=== PATIENT | female | born 1950 | race Caucasian/White ===

== ENCOUNTER 2020-07-25 15:11 | Outpatient (CLI) | payer MEDICARE, SELFPAY ==
--- NOTE | 2020-07-25 15:20 | MM_ITS ---
WS: [id number] SCREENING DIGITAL MAMMOGRAM WITH CAD HISTORY: SCREENING COMPARISON: 03/29/2015 Bilateral CC and MLO views submitted. Computer aided detection analyzed. Breast composition: There are scattered areas of fibroglandular density. No suspicious masses, microc alcifications or architectural distortion. MM/[place] [id number] IMPRESSION: BI-RADS: 1-Negative FOLLOW UP: 1 Year Follow-up
== END 2020-07-25 15:12 | disposition home or self-care (01) ==
PROVIDERS: PCP Internal Medicine; Visit Provider Nurse Practitioner Family
DX: Z12.31 Encounter for screening mammogram for malignant neoplasm of breast (principal)
CPT/HCPCS: 77067

== ENCOUNTER 2024-05-28 14:51 | Outpatient (CLI) | payer MEDICARE, SELFPAY ==
--- NOTE | 2024-05-28 14:55 | MR_ITS ---
WS: [id number] MRI CERVICAL SPINE NONCONTRAST HISTORY: CERVICAL SPINE PAIN COMPARISON: None available. Technique: Multiplanar, multisequence noncontrast imaging of the cervical spine. Advanced degenerative disc disease and osteophytosis throughout the cervical spine. Increased T2 signal in the central cervical cord at C5-6. Cervical cord myelomalacia extends over a l ength of 10 mm. Posterior fossa is negative. Craniocervical junction, C1 and C2 relationship, odontoid process and soft tissues are normal. C2-C3: Annular disc bulging with osteophytosis. Mild bilateral foraminal stenosis. C3-C4: Mild annular disc bulging with moderate RIGHT and severe LEFT foraminal stenosis. Bilateral fa cet arthritis. C4-C5: Marked annular disc bulging with a large central disc protrusion and facet arthritis. Severe c entral and LEFT foraminal stenosis. Moderate RIGHT foraminal stenosis. C5-C6: Large central disc protrusion and osteophytosis. Severe central with moderate bilateral forami nal stenosis. C6-C7: Diffuse annular disc bulging with osteophytic ridging. LEFT paracentral disc protrusion. Moder ate to severe central with bilateral foraminal stenosis. C7-T1: Diffuse annular disc bulging Paraspinal soft tissue are normal. MR/MR cervical spin wo con* [id number] IMPRESSION: 1. Advanced degenerative disc disease and spondylosis cervical spine. 2. C5-6: Severe central with moderate bilateral foraminal stenosis. Large cent ral disc protrusion. 3. C3-4: Moderate RIGHT and severe LEFT foraminal stenosis. 4. C4-5: Severe central and LEFT foraminal stenosis with moderate RIGHT forami nal stenosis. 5. C6-7: Moderate to severe central with bilateral foraminal stenosis. LEFT pa racentral disc protrusion. 6. Cord myelomalacia at C5-6 extends over a length of 10 mm.
== END 2024-05-28 14:52 | disposition home or self-care (01) ==
LOC: RAD 14:54
PROVIDERS: PCP Internal Medicine; Visit Provider Internal Medicine
DX: M99.61 Osseous and subluxation stenosis of intervertebral foramina of cervical region (principal); M50.30 Other cervical disc degeneration, unspecified cervical region; M47.892 Other spondylosis, cervical region; M50.321 Other cervical disc degeneration at C4-C5 level; M50.20 Other cervical disc displacement, unspecified cervical region; M50.323 Other cervical disc degeneration at C6-C7 level; M50.33 Other cervical disc degeneration, cervicothoracic region; M50.022 Cervical disc disorder at C5-C6 level with myelopathy; M50.322 Other cervical disc degeneration at C5-C6 level
CPT/HCPCS: 72141

== ENCOUNTER → 2024-07-15 13:21 | Outpatient (BNVA) | payer MEDICARE, SELFPAY | PROVIDERS: PCP Internal Medicine; Visit Provider Orthopaedic Surgery | DX: M54.2 Cervicalgia (principal); Z01.818 Encounter for other preprocedural examination; M47.12 Other spondylosis with myelopathy, cervical region | CPT/HCPCS: 36415; 72050; 80053; 81001; 85025; 99204 ==

== ENCOUNTER → 2024-08-13 09:18 | Outpatient (BNVA) | payer MEDICARE, SELFPAY | PROVIDERS: PCP Internal Medicine; Visit Provider Family Medicine | DX: Z01.818 Encounter for other preprocedural examination (principal) | CPT/HCPCS: 80053; 81003; 85025; 93005 ==

== ENCOUNTER 2024-08-25 17:12 | Inpatient (IN) | payer MEDICARE, SELFPAY ==
[2024-08-25] VITALS (12 sets, daily range): BP systolic 124–157; BP diastolic 56–69; PULSE 53–79; RESP 14–17; TEMP 36.3–36.6; O2SAT 94–98; BMI 28.3
[2024-08-25] MEDS: sodium chloride 0.9% 1,000 ML 30 ML IV (11:45)
--- NOTE | 2024-08-25 12:30 | ANES.PREANE2 ---
Pre-Anesthetic Assessment Height/Weight: Height 5 ft 3 in Weight 160 lb Temp Pulse Resp BP Pulse Ox O2 Del Method 97.5 F L 79 16 144/63 98 Room Air 08/25/24 11:30 08/25/24 11:30 08/25/24 11:30 08/25/24 11:30 08/25/24 11:30 08/25/24 11:30 Preop Diagnosis: Cervical spondylosis with myelopathy Operation Date: 08/25/24 13:15 Proposed Procedures p Anterior Cervical Discectomy & Fusion ACDF w/ Anterior Interbody Fusion w/ Cage w/ Instrumentation w/ Allograft w/ Navigation(Not Applicable) - Suman Haines, DO Was Beta Adilia taken within 24 hours: N/A Was Clonidine taken within 24 hours: N/A Last intake: Intake Last Liquid Date 08/24/24 Last Liquid Time 21:00 Last Solid Date 08/24/24 Last Solid Time 18:00 Social No alcohol and No tobacco Exam alert, oriented x 3, clear to auscultation bilaterally and regular rate & rhythm Airway Submandibular: within normal limits Cervical ROM: within normal limits Mallampati: Class II Dentition: full Anesthetic Plan ASA status: 2 Anesthesia: General Other: No prior issues with anesthesia NPO since yesterday History of hypertension on amlodipine. Preop BP 144/63 Labs 08/13/2024 reviewed acceptable for procedure EKG sinus rhythm Plan for GETA Medications/Allergies Home Medications Medication Instructions Recorded Confirmed Last Taken Type amlodipine 5 mg tablet 5 mg PO DAILY 07/15/24 08/25/24 1 Week Ago History ~08/18/24 cholecalciferol (vitamin D3) 50 50 mcg PO DAILY 08/13/24 08/25/24 1 Week Ago History mcg (2,000 unit) capsule ~08/18/24 ibuprofen 800 mg tablet 800 mg PO Q6H PRN Pain 08/13/24 08/25/24 1 Week Ago History ~08/18/24 Bone Growth Stimulator #1 ea 08/19/24 Unknown Rx Allergies Allergy/AdvReac Type Severity Reaction Status Date / Time adhesive tape Allergy ADR-Itching Verified 08/25/24 11:32 Current Medications Generic Name Dose Route Start Last Admin Trade Name Freq PRN Reason Stop Dose Admin Sodium Chloride 1,000 mls @ 30 mls/hr 08/25/24 11:30 08/25/24 11:45 Sodium Chloride 0.9% IV 08/26/24 11:29 30 mls/hr .Q24H ALLIE Administration PFSH Anesthesia Social History Smoking and tobacco/nicotine status: never used tobacco/nicotine Data Anesthesia Cardiac Studies: No Data to Display
--- NOTE | 2024-08-25 12:46 | W.PM.OPSUD ---
Surgery/Procedure H&P Update DATE OF PROCEDURE: August 25, 2024 DATE H&P PERFORMED: 08/13/24 H&P UPDATE INFORMATION: I have reviewed H&P completed within last 30 days, I have examined patient prior to procedure and No changes to prior documentation PREOP DIAGNOSIS: Cervical spondylosis with myelopathy PLANNED PROCEDURE: Operation Date: 08/25/24 13:15 Proposed Procedures p Anterior Cervical Discectomy & Fusion ACDF w/ Anterior Interbody Fusion w/ Cage w/ Instrumentation w/ Allograft w/ Navigation(Not Applicable) - Suman Haines DO
[2024-08-25] MEDS: ceFAZolin 2,000 mg SDV 2000 MG IVP ×2 (14:02→22:30)
[2024-08-25] MEDS: lidocaine-epi 1% PF 1:200,000 30 mL SDV 10 ML INJECTION (15:47)
--- NOTE | 2024-08-25 16:27 | XR_ITS ---
WS: [id number] Cervical spine, C-arm fluoroscopy views, 08/25/2024 Clinical Data: OR PICS ACDF Comparison: Cervical spine, 07/15/2024 Findings: Dr. Haines performed an anterior cervical disc fusion. XR/XR cervical spine 3V* [id number] Impression: Anterior cervical disc fusion.
--- NOTE | 2024-08-25 16:48 | P.OP_ITS ---
Operative Report Date of procedure: August 25, 2024 Pre-op diagnosis: Cervical spondylosis with myelopathy Post-op diagnosis: same Procedure done: 1. Anterior diskectomy C4/5 2. Anterior diskectomy C5/6 3. Anterior discectomy C6/7 4. Insertion of cage C4/5 5. Insertion of cage C5/6 6. Insertion of Cage C6/7 7. Instrumentation with anterior plate from C4-C7 8. Use of allograft Surgeon: Suman Haines DO Estimated blood loss (mL): 100 Procedure: 1. Anterior diskectomy C4/5 2. Anterior diskectomy C5/6 3. Anterior discectomy C6/7 4. Insertion of cage C4/5 5. Insertion of cage C5/6 6. Insertion of Cage C6/7 7. Instrumentation with anterior plate from C4-C7 8. Use of allograft The patient was taken to the operating room, where he underwent general endotracheal anesthesia without complications. He was then positioned supine on the operating table, and all areas of impingement were well padded. The arms were carefully padded and tucked at his sides. A roll was placed between the shoulder blades.. An x-ray was done to determine the appropriate level for the skin incision. The entire neck was then sterilely prepped and draped in the usual fashion. Neuromonitoring was attached prior to prepping. A transverse skin incision was made and carried down to the platysma muscle. This was then split in line with its fibers. Blunt dissection was carried down medial to the carotid sheath and lateral to the trachea and esophagus until the anterior cervical spine was visualized. A needle was placed into a disc and an x-ray was done to determine its location. The longus colli muscles were then elevated bilaterally with the electrocautery unit. Self-retaining retractors were placed deep to the longus colli muscle. Attention was brought to the C4/5 level that was confirmed on x-ray. A caspar pin was placed into the C4 vertebrae and the C5 vertebrae. The disk space was then distracted. The microscope was then brought in. A radical anterior discectomies were performed at C4/5. This included complete removal of the anterior annulus, nucleus, and posterior annulus. The posterior longitudinal ligament was removed as were the posterior osteophytes. Foraminotomies were then accomplished bilaterally. This was done using a high speed vera, kerrison rongeurs and curretes Once all of this was accomplished, the curved currette was used to check for any residual compression. The central canal was wide open as were the foramen. A high-speed bur was used to remove the cartilaginous endplates above and below the interspace. Bleeding cancellous bone was exposed. The disc space were measured and appropriate size cage were placed sterilely onto the field. Allogr aft graft was packed into the cages. The cage was then placed and there was good juxtaposition against the bleeding decorticated surfaces and good distraction of each interspace. Attention was brought to the next interspace. The [place] pins were removed. Bone wax was used to prevent any bleeding from occurring at the pin sites. Attention was brought to the C5/6 level that was confirmed on x-ray. A caspar pin was placed into the C5 vertebrae and the C6 vertebrae. The disk space was then distracted. The microscope was then brought in. A radical anterior discectomies were performed at C5/6. This included complete removal of the anterior annulus, nucleus, and posterior annulus. The posterior longitudinal ligament was removed as were the posterior osteophytes. Foraminotomies were then accomplished bilaterally. This was done using a high speed vera, kerrison rongeurs and curretes Once all of this was accomplished, the curved currette was used to check for any residual compression. The central canal was wide open as were the foramen. A high-speed bur was used to remove the cartilaginous endplates above and below the interspace. Bleeding cancellous bone was exposed. The disc space were measured and appropriate size cage were placed sterilely onto the field. Allograft graft was packed into the cages. The cage was then placed and there was good juxtaposition against the bleeding decorticated surfaces and good distraction of each interspace. Attention was brought to the next interspace. The [place] pins were removed. Bone wax was used to prevent any bleeding from occurring at the pin sites. Attention was brought to the C6/7 level that was confirmed on x-ray. A caspar pin was placed into the C6 vertebrae and the C7 vertebrae. The disk space was then distracted. The microscope was then brought in. A radical anterior discectomies were performed at C6/7. This included complete removal of the anterior annulus, nucleus, and posterior annulus. The posterior longitudinal ligament was removed as were the posterior osteophytes. Foraminotomies were then accomplished bilaterally. This was done using a high speed vera, kerrison rongeurs and curretes Once all of this was accomplished, the curved currette was used to check for any residual compression. The central canal was wide open as were the foramen. A high-speed bur was used to remove the cartilaginous endplates above and below the interspace. Bleeding cancellous bone was exposed. The disc space were measured and appropriate size cage were placed sterilely onto the field. Allograft graft was packed into the cages. The cage was then placed and there was good juxtaposition against the bleeding decorticated surfaces and good distraction of each interspace. The [place] pins were removed. Bone wax was used to prevent any bleeding from occurring at the pin sites. The appropriate size anterior cervical locking plate was chosen and bent into gentle lordosis. Two screws were then placed into each of the vertebral bodies at C4, C5, C6 and C7. There was excellent purchase. A final x-ray was done confirming good position of the hardware and Cages. The locking screws were then applied, also with excellent purchase. Following a final copious irrigation, there was good hemostasis and no dural leaks. The carotid pulse was strong. The wounds were then closed in layers using 2-0 Vicryl suture for the platysma muscle, 2-0 Vicryl suture for the subcutaneous tissue, and 4-0 monocryl suture in a subcuticular skin closure. Glue was placed followed by application of a sterile dressing. The drain was hooked to bulb suction. A soft collar was applied. The patient was then carefully returned to the supine position on his hospital bed where he was reversed and extubated and taken to the recovery room having to lerated the procedure well.
--- NOTE | 2024-08-25 17:21 | ANE.PACU2 ---
Inpatient post-anesthesia follow up: Airway intact: Yes Vital signs: Temperature 98.8 F Pulse Rate 81 Respiratory Rate 17 Blood Pressure 153/73 Pulse Oximetry 94 Oxygen Delivery Me thod Room Air Oxygen Flow Rate Fraction of Inspir ed Oxygen Hydration adequate: Yes Nausea and vomiting: No Pain level: 1 Mental status: Baseline
[2024-08-25] MEDS: docusate sodium 100 mg Capsule PO (17:51)
[2024-08-25] MEDS: lactated ringers 1,000 ML 90 ML IV (17:51)
[2024-08-25] MEDS: HYDROcodone-acetaminophen 5-325 mg Tablet PO (22:29)
[2024-08-25] MEDS: phenol oral Spray 177 mL 3 SPRAY MUCOUS MEM (23:23)
[2024-08-26] VITALS: BP 169/81; PULSE 72; RESP 15; TEMP 36.7; O2SAT 94
[2024-08-26 04:00] VITALS: BP 147/67; PULSE 65; RESP 16; TEMP 36.4; O2SAT 96
[2024-08-26] MEDS: ketorolac 30 mg/mL INJ IVP (05:23)
[2024-08-26] MEDS: ceFAZolin 2,000 mg SDV 2000 MG IVP (05:23)
[2024-08-26] MEDS: lactated ringers 1,000 ML 90 ML IV (05:23)
[2024-08-26 07:25] VITALS: BP 153/73; PULSE 81; RESP 17; TEMP 37.1; O2SAT 94
[2024-08-26] MEDS: cholecalciferol (vitamin D3) 1,000 unit Tablet 2000 UNIT PO (07:58)
[2024-08-26] MEDS: amlodipine 5 mg Tablet PO (07:58)
[2024-08-26] MEDS: docusate sodium 100 mg Capsule PO (07:58)
--- NOTE | 2024-08-26 08:12 | PM.DCS ---
Discharge Providers Date of Admission: 08/25/24 17:12 Date of Discharge: August 26, 2024 Attending Provider at Admission: Suman Haines DO Attending Provider at Discharge: Suman Haines DO Primary Care Provider: Gerardo Altamirano MD Reason for Visit Reason for Visit: M48.02 Physical Exam Narrative: Patient doing well okay swallowing. Hands feel better. Urinary Catheter Management: Andrew: Cath Placed During This Visit: yes Reason for Continuing Indwelling Catheter: Perioperative Use in Selected Surgeries Urinary Catheter Date of Insertion: 08/25/24 Urinary Catheter Time of Insertion: 14:15 Discharge Data Studies Completed and Pending Pending at discharge Category Date Time Status C-arm Fluoroscopy [id number] Routine Exams 08/25/24 11:19 Taken XR cervical spine 3V* [id number] Routine Exams 08/25/24 16:27 Taken Vitals Last Vital Signs Temp 98.8 F 08/26/24 07:25 Pulse 81 08/26/24 07:25 Resp 17 08/26/24 07:25 BP 153/73 08/26/24 07:25 Pulse Ox 94 08/26/24 07:25 O2 Del Method Room Air 08/26/24 07:25 Discharge Plan Discharge Patient Disposition: Home Condition: Stable Prescriptions: New hydrocodone-acetaminophen 5-325 mg tablet 1 - 2 tab PO .Q4-6H Qty: 40 0RF Continued amlodipine 5 mg tablet 5 mg PO DAILY cholecalciferol (vitamin D3) 50 mcg (2,000 unit) capsule 50 mcg PO DAILY Held ibuprofen 800 mg tablet 800 mg PO Q6H PRN (Reason: Pain) Hold Instructions: Resume on 08/28/24. No Action (DME) Bone Growth Stimulator See Rx Instructions .Route .MEDSUPPLY Qty: 1 0RF Rx Instructions: As directed Discharge Orders: Discharge Order (Routine); Ordered 08/26/24 Ordered By: Suman Haines Discharge Diet: Advance as tolerated Discharge Activity: Limit activity as instructed Patient Instructions: Acute Wound Care (DC), Opioid Safety, Post Anesthesia Care Activity Restrictions/Additional Instructions: Thank you for choosing [facility] for your care! The following is a list of instructions, from your provider, to follow upon your discharge to ensure you have the optimal recovery from your recent injury or surgery. Anterior Cervical Discectomy and Fusion: What to Expect at Home Your Recovery Follow-up care is a shah part of your treatment and safety. Be sure to make and go to all appointments, and call your doctor if you are having problems. If you do not already have a follow-up appointment made, call office in the next 1-3 days to make follow up appointment for 2 weeks at [phone]. It is also a good idea to know your test results and keep a list of the medicines you take. You can expect your neck to feel stiff or sore after surgery. This should improve in the weeks after surgery. But it may take 4 to 6 months for you to get better completely. You may have trouble sitting or standing in one position for very long and may need pain medicine in the weeks after your surgery. It may take 4 to 6 weeks to get back to your usual activities, but it may depend on what kind of surgery you had. Your throat will feel sore and it may be difficult to swallow for the first 3 days after your surgery. As long as you can get liquids down without difficulty, this should slowly improve, otherwise call our office or seek medical attention if it becomes increasingly difficult to get anything down including liquids. Avoid hot liquids for first 3-5 days. Soothing foods/liquids such as jello, pudding, and luke warm soups are recommended until swallowing improves. Staying elevated will also help, it's advised you keep propped up at while sleeping to help reduce the swelling. You may use an ice pack directly on your incision or around it on the front of your neck, using a cloth to protect your skin; and a heating pad to the back of your neck as needed. Do not use over the counter anti-inflammatory medications (Ibuprofen, Motrin, Aleve, Advil, etc) Taking these meds after having a fusion can delay fusion rates, we recommend you avoid them for the first 3 months after your surgery[address] Dr. Haines may advise you to work with a physical therapist to strengthen the muscles around your neck and back - this will be discussed at your follow - up appointments. The pain or numbness you were having in your arms before surgery should get better or go away completely. This care sheet gives you a general idea about how long it will take for you to recover. But each person recovers at a different pace. Follow the steps below to get better as quickly as possible. How can you care for yourself at home? Activity ? Rest when you feel tired. Getting enough sleep will help you recover. ? Try to walk each day. Start by walking a little more than you did the day before. Bit by bit, increase the amount you walk. Walking boosts blood flow and helps prevent pneumonia and constipation. Walking may also decrease your muscle soreness after surgery. ? No lifting anything that is more that 5 pounds. This may include heavy grocery bags and milk containers, a heavy briefcase or backpack, cat litter or dog food bags, a child, or a vacuum aircraft cleaner. ? Avoid strenuous activities, such as bicycle riding, jogging, weightlifting, or aerobic exercise, until your doctor says it is okay. ? Do not drive until your follow-up visit after your surgery, or until your doctor says it isokay. ? Avoid taking long car trips for 2 to 4 weeks after surgery. Your neck may become tired and painful from sitting too long in one position. ? You will probably need to take 4 to 6 weeks off from work. It depends on the type of work you do and how you feel. ? You may have sex as soon as you feel able, but avoid positions that put stress on your neck or cause pain. Diet ? You can eat your normal diet. If your stomach is upset, try bland, low-fat foods like plain rice, broiled chicken, toast, and yogurt ? Drink plenty of fluids. If you have kidney, heart, or liver disease and have to limit fluids, talk with your doctor before you increase the amount of fluids you drink. ? You may notice that your bowel movements are not regular right after your surgery. This is common. Try to avoid constipation and straining with bowel movements. You may want to take a fiber supplement every day. If you have not had a bowel movement after a couple of days, ask your doctor about taking a mild laxative. Medicines ? Take pain medicines exactly as directed. 1. If Dr. Haines gave you a prescription medicine for pain, take lt as prescribed. 2. Do not take two or more pain medicines at the same time unless the doctor told you to. Many pain medicines have acetaminophen, which is Tylenol. Too much acetaminophen {Tylenol) can be harmful. 3. If you think your pain pill is making you sick to your stomach: 4. Take your pills after meals (unless your doctor has told you not to). 5. Ask your Dr. for a different pain pill. Incisioncare ? Remove your dressing 48hours after your surgery. Ok to shower and get the incision wet. Do not overtly wash your incision. When done, pad dry, leave open to air thereafter. Avoid creams and ointments directly on your incision. ? Your sutures in the incision will dissolve and fall out on their own. ? Keep the area clean and dry. You may cover it with a gauze bandage if it weeps or rubs against clothing; if you choose to do this, change the dressing everyday. Other instructions ? Use a heating pad, hot water bottle, or gentle massage on your back to reduce stiffness. Avoid putting heat on your incision When should you call for help? ? Call 911 anytime you think you may need emergency care. For example, call if: ? You pass out (lose consciousness). ? You have sudden chest pain and shortness of breath, or you cough upblood. ? You cannot swallow. ? You have severe pain in your neck or back. ? Call your Dr. or seek immediate medical care if: ? You have pain that does not get better after you take pain pills. ? You have loose stitches, or your incision comes open. ? You have blood or fluid draining from the incision. ? You have signs of infection, such as: 1. Increased pain, swelling, warmth, or redness. 2. Red streaks leading from the site. 3. Pus draining from the site. 4. Swollen lymph nodes in your neck or armpits. 5. A fever. ? You have severe pain in your arms. ? You have new or increased weakness or numbness in your arms. ? Watch closely for any changes in your health, and be sure to contact your doctor if: ? You do not have a bowel movement after taking a laxative. Discharge Attestations Time Spent in Discharge Care*: less than 30 min Quality Metrics Clinical Quality Measures [ No reported AMI, CVA or VTE this stay] Coding Level of Care Code Acute Code for [place] [place]
[2024-08-26] MEDS: HYDROcodone-acetaminophen 5-325 mg Tablet PO (09:15)
--- NOTE | 2024-08-26 10:44 | PC.NURSE ---
This nurse removed sutures and hemovac drain and applied pressure. Pt tolerated well.
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
== END 2024-08-26 10:55 | disposition home or self-care (01) | DRG 473 ==
LOC: MEDSURG 23:29
PROVIDERS: Admitting Provider Orthopaedic Surgery; PCP Family Medicine; Visit Provider Orthopaedic Surgery
PROC: 0RB30ZZ Excision of Cervical Vertebral Disc, Open Approach (ICD-10-PCS; CPT 22551; principal; 2024-08-25 12:55)
DX: M47.12 Other spondylosis with myelopathy, cervical region (principal)
CPT/HCPCS: 51702; 72040; 76000; 97110; 97116; 97161; C1713; C1763; C9359; J0330; J0690; J1100; J1885; J2405; J2704; J2710; J3010; J3490; J7030; J7120

== ENCOUNTER 2024-08-27 10:17 | Emergency (ER) | payer MEDICARE, SELFPAY ==
[2024-08-27 10:32] VITALS: BP 134/70; PULSE 91; RESP 17; TEMP 36.7; O2SAT 96; BMI 29.2
--- NOTE | 2024-08-27 10:41 | XR_ITS ---
WS: [id number] Right shoulder, 3 views, 08/27/2024 Clinical Data: trauma Comparison: None. Findings: No fractures or dislocations are seen. The AC joint shows moderate osteoarthritis. The glenohumeral j oint shows narrowing and irregularity. There is a small calcification overlying the greater tuberosit y which may represent calcific bursitis and/or tendinitis. The adjacent right clavicle, right scapula and ribs are normal. The soft tissues are unremarkable. There is an anterior cervical disc fusion. XR/XR shoulder RT min 2V* [id number] Impression: 1. 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 2. Calcific bursitis and/or tendinitis.
--- NOTE | 2024-08-27 10:41 | CT_ITS ---
WS: [id number] CT CERVICAL SPINE HISTORY: trauma, recent neck surgery, fell out of bed. TECHNIQUE: Contiguous 2.0 mm axial imaging performed through the entire cervical spine. Sagittal and coronal reformats also performed. All CT scans at [facility] use at least one of these dose o ptimization techniques: automated exposure control; mA and/or kV adjustment per patient size (include s targeted exams where dose is matched to clinical indication); or iterative reconstruction. DLP: 161.87 mGy.cm COMPARISON: Cervical spine 07/15/2024 Recent anterior cervical fusion from C4-C7. Interbody spacers at C4-5, C5-6 and C6-7. No hardware fra cture identified. C2 anterolisthesis by 2 mm. Normal facet joint alignment. C2-C3: Osteophytic ridging and facet arthritis. Facet joint arthritis and foraminal stenosis. C3-C4: Bilateral facet joint arthritis with moderate RIGHT and severe LEFT foraminal stenosis. C4-C5: Marked osteophytic ridging and facet arthritis. Severe central and foraminal stenosis. C5-C6: Marked osteophytic ridging. Severe central and foraminal stenosis. C6-C7: Severe central and foraminal stenosis. C7-T1: Normal. Postoperative changes are noted in the soft tissues along the RIGHT neck. There is edema but no focal soft tissue mass. Normal postoperative soft tissue for recent surgery. Large area of decreased attenuation noted in the RIGHT occipital lobe suspicious for a subacute infar ct. No prior studies available indicating a prior infarct. CT/CT cervical spin wo con* [id number] IMPRESSION: 1. Stable postoperative anterior cervical fusion from C4-C7. No hardware fract ure or displacement. 2. Appropriate recent postsurgical findings along the RIGHT neck. No large hem atoma or mass. 3. Area of decreased attenuation involving the RIGHT occipital and temporal lo be is incompletely visualized. Suspicious for subacute infarct. Recommend follo w-up noncontrast CT head. 4. Multilevel areas central and foraminal stenosis throughout the cervical spi ne. Notified Alison Proctor at 08/27/2024 11:34 AM.
--- NOTE | 2024-08-27 11:04 | ED_ITS ---
HPI - Fall 2 General: Chief Complaint: Fall Stated Complaint: fall Time Seen by Provider: 08/27/24 10:41 History of Present Illness: 74-year-old female presents to the emerg ency room after a fall at home. Patient is 2 days postop anterior approach cervical discectomy. She leaned forward to reach for something while she was in bed and fell out of the bed she did not strike her head but she did strike her right shoulder she complaining of some discomfort in her right shoulder she still has full use of her right arm. She denies any other injury there was no loss of consciousness she has continued neck pain not significantly changed from her postop condition prior to the fall. She has not had any fever sweats chills she denies any shortness of breath or chest pain. Associated symptoms-after fall: Denies abdominal pain, chest pain or neck pain Related Data Home Medications Medication Instructions Recorded Confirmed amlodipine 5 mg tablet 5 mg PO DAILY 07/15/24 08/27/24 cholecalciferol (vitamin D3) 50 50 mcg PO DAILY 08/13/24 08/27/24 mcg (2,000 unit) capsule ibuprofen 800 mg tablet 800 mg PO Q6H PRN Pain 08/13/24 08/27/24 Previous Rx's Medication Instructions Recorded Bone Growth Stimulator #1 ea 08/19/24 hydrocodone 5 mg-acetaminophen 325 1 - 2 tab PO .Q4-6H #40 tabs 08/26/24 mg tablet Allergies Allergy/AdvReac Type Severity Reaction Status Date / Time adhesive tape Allergy ADR-Itching Verified 08/25/24 11:32 Review of Systems 2 Const: Denies: fever(s) or chills Card: Denies: chest pain Resp: Denies: dyspnea GI: Denies: abdominal pain : Denies: dysuria, urinary frequency or urinary urgency Musc: Denies: neck pain or back pain Skin/Breast: Denies: rash PFSH ED 2 PFSH: Social History Smoking and tobacco/nicotine status: never used tobacco/nicotine Physical Exam 2 Const: GENERAL APPEARANCE: cooperative ORIENTATION/CONSCIOUSNESS: Yes awake, Yes oriented to person, Yes oriented to place and Yes oriented to time HENMT: COMMON NORMALS: normocephalic, atraumatic and hearing grossly normal bilaterally HEAD & SCALP: normocephalic and atraumatic Resp: COMMON NORMALS: normal respiratory effort, No retractions, No use of accessory muscles and clear to auscultation bilaterally AUSCULTATION: clear to auscultation bilaterally Cardio: COMMON NORMALS: regular rate, regular rhythm and No murmurs present (Cardio) RATE: regular rate RHYTHM: regular rhythm GI: COMMON NORMALS: Soft to palpation and No hepatosplenomegaly present A USCULTATION: Yes normoactive bowel sounds PALPATION: Yes Soft to palpation, No Tenderness to palpation present (GI), No Guarding due to palpation present (GI) and Yes No hepatosplenomegaly present Extremity: COMMON NORMALS: normal to inspection, capillary refill normal, no clubbing, cyanosis or edema, no calf tenderness and no pedal edema Neuro: SENSORIUM/ORIENTATION: Yes oriented to person, Yes oriented to place and Yes oriented to time Skin: COMMON NORMALS: no rashes or lesions noted GENERAL SKIN EXAM: no rashes or lesions noted Course 2 Vital Signs: Vital signs: Vital Signs Temperature 98.0 F 08/27/24 10:32 Pulse Rate 81 08/27/24 13:57 Respiratory Rate 16 08/27/24 11:27 Blood Pressure 162/59 08/27/24 13:57 Pulse Oximetry 98 08/27/24 13:57 Oxygen Delivery Me thod Room Air 08/27/24 13:29 MDM - Fall Medical Decision Making Patient initially presented for right shoulder pain and neck pain. She intermittently has some stridor first I seen her she had none had some stridor for part of the time I was with her later and then stopped. She states been like that since her surgery. On the initial CT of cervical spine there is a question of a subacute acute right occipital stroke. CT of the head was done and she has a large right temporal mass with edema and mass effect she appears to have some herniation. Discussed with the patient she has been having more frequent headaches that have been more intense. Discussed with neurosurgery at [facility] patient excepted as an ER to ER transfer. She has been given Decadron and will be seeing the neurosurgeon Dr. Kang as soon as she arrives there Dr. Kris Everett is a receiving on the ER to ER transfer. Medical Records I reviewed the patient's medical records. Lab Data I reviewed the patient's lab results. 08/27/24 11:57 08/27/24 11:57 Radiology Impressions Cervical Spine CT 08/27/24 10:41 IMPRESSION: 1. Stable postoperative anterior cervical fusion from C4-C7. No hardware fracture or displacement. 2. Appropriate recent postsurgical findings along the RIGHT neck. No large hematoma or mass. 3. Area of decreased attenuation involving the RIGHT occipital and temporal lobe is incompletely visualized. Suspicious for subacute infarct. Recommend follow-up noncontrast CT head. 4. Multilevel areas central and foraminal stenosis throughout the cervical spine. Notified Alison Proctor at 08/27/2024 11:34 AM. Shoulder X-Ray 08/27/24 10:41 Impression: 1. 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 2. Calcific bursitis and/or tendinitis. Head CT 08/27/24 11:44 IMPRESSION: 1. Large mass centered in the RIGHT temporal region with a large amount of surrounding cerebral edema resulting in midline shift and herniation. Mass intensely enhancing and measures 3.5 x 3.9 x 4.9 cm. Suspect this may be a meningioma and atypical due to its size. Differential would include glioma and brain mets such as melanoma. 2. Subfalcine herniation by 10 mm with entrapment of the third ventricle and dilatation of the LEFT lateral ventricle. 3. Additional partial entrapment of the suprasellar and ambient cisterns. 4. Fourth ventricle is patent. No inferior herniation of the brain. Notified Francisco Fischer DO at 08/27/2024 12:[address] 08/27/24 12:41 IMPRESSION: 1. Recent postoperative changes of an anterior cervical fusion with postoperative air identified. 2. There is a small fluid collection in the prevertebral space at the level of C7-1 and along the RIGHT lateral vertebral body at C6-7. Small hematoma versus seroma. There is slight mass effect upon the posterior cervical esophagus. 3. No significant narrowing or compromise of the airway. Notified Francisco Fischer DO at 08/27/2024 1:22 PM. Laboratory Results WBC 12.87 10^3/uL (3.29-11.43) H 08/27/24 11:57 RBC 4.20 10^6/uL (3.85-5.65) 08/27/24 11:57 Hgb 12.60 g/dL (11.27-16.99) 08/27/24 11:57 Hct 36.8 % (36-47) 08/27/24 11:57 MCV 87.6 fl (85-98) 08/27/24 11:57 MCH 30.0 pg (27-33) 08/27/24 11:57 MCHC 34.2 g/dL (30-55) 08/27/24 11:57 RDW 11.7 % (12.1-15.1) L 08/27/24 11:57 Plt Count 287 10^3/cmm (157-399) 08/27/24 11:57 MPV 9.1 fL (7.4-10.4) 08/27/24 11:57 Neut % (Auto) 80.8 % 08/27/24 11:57 Lymph % (Auto) 9.3 % 08/27/24 11:57 [place] % (Auto) 8.8 % 08/27/24 11:57 Eos % (Auto) 0.3 % 08/27/24 11:57 Baso % (Auto) 0.4 % 08/27/24 11:57 Neut # (Auto) 10.40 10^3/uL (1.8-7.7) H 08/27/24 11:57 Lymph # (Auto) 1.2 10^3/uL (0.8-4.8) 08/27/24 11:57 [place] # (Auto) 1.1 10^3/uL (0.2-0.9) H 08/27/24 11:57 Eos # (Auto) 0.0 10^3/uL (0.0-0.8) 08/27/24 11:57 Baso # (Auto) 0.1 10^3/uL (0.0-0.1) 08/27/24 11:57 Nucleated RBC % (auto) 0 % 08/27/24 11:57 Nucleated RBCs # 0.0 /100WBC 08/27/24 11:57 PT 14.20 SECONDS (12.1-14.9) 08/27/24 11:57 INR 1.03 (0.8-1.2) 08/27/24 11:57 APTT 24.8 SECONDS (23.9-36.7) 08/27/24 11:57 Sodium 136 mmol/L (136-145) 08/27/24 11:57 Potassium 3.3 mmol/L (3.5-5.1) L 08/27/24 11:57 Chloride 97 mmol/L (98-107) L 08/27/24 11:57 Carbon Dioxide 27 mmol/L (22-29) 08/27/24 11:57 Anion Gap 15.3 (5-19) 08/27/24 11:57 BUN 13 mg/dL (8-23) 08/27/24 11:57 Creatinine 0.7 mg/dL (0.5-0.9) 08/27/24 11:57 GFR Calculation Not Reportable 08/27/24 11:57 Glucose 109 mg/dL (65-115) 08/27/24 11:57 POC Glucose 105 mg/dL (70-110) 08/27/24 12:15 Calculated Osmolality 283 mOsm/kg (285-295) L 08/27/24 11:57 Calcium 9.0 mg/dL (8.5-10.5) 08/27/24 11:57 Total Bilirubin 0.5 mg/dL (0.15-1.2) 08/27/24 11:57 AST 36 U/L (0-32) H 08/27/24 11:57 ALT 13 U/L (0-33) 08/27/24 11:57 Alkaline Phosphatase 64 U/L (35-105) 08/27/24 11:57 Total Protein 7.0 g/dL (6.6-8.7) 08/27/24 11:57 Albumin 4.0 g/dL (3.5-5.2) 08/27/24 11:57 Globulin 3.0 g/dL (1.3-4.6) 08/27/24 11:57 Urine Color Yellow (Yellow) 08/27/24 12:35 Urine Appearance Clear (CLEAR) 08/27/24 12:35 Urine pH 7.5 (5-7) 08/27/24 12:35 Ur Specific [place] 1.027 (1.005-1.030) 08/27/24 12:35 Urine Protein Negative (Negative) 08/27/24 12:35 Urine Glucose (UA) Negative (Normal) 08/27/24 12:35 Urine Ketones Trace (Negative) 08/27/24 12:35 Urine Blood Negative (Negative) 08/27/24 12:35 Urine Nitrate Negative (Negative) 08/27/24 12:35 Urine Bilirubin Negative (Negative) 08/27/24 12:35 Urine Urobilinogen 0.2 mg/dL (Negative) 08/27/24 12:35 Ur Leukocyte Esterase Negative (Negative) 08/27/24 12:35 Urine RBC 0-2 /hpf (0-2) 08/27/24 12:35 Urine WBC 0-5 /hpf (0-5) 08/27/24 12:35 Ur Squamous Epith Cells 0-5 /hpf (0-5) 08/27/24 12:35 Amorphous Sediment Not Reportable 08/27/24 12:35 Urine Bacteria None seen /hpf (NONE) 08/27/24 12:35 Hyaline Casts 0-4 /lpf H 08/27/24 12:35 Urine Opiates Screen Positive ng/mL (Negative) H 08/27/24 12:35 Ur Barbiturates Screen Negative ng/mL (Negative) 08/27/24 12:35 Ur Phencyclidine Scrn Negative ng/mL (Negative) 08/27/24 12:35 Ur Amphetamines Screen Negative ng/mL (Negative) 08/27/24 12:35 U Benzodiazepines Scrn Negative ng/mL (Negative) 08/27/24 12:35 Urine Cocaine Screen Negative ng/mL (Negative) 08/27/24 12:35 U Marijuana (THC) Screen Negative ng/mL (Negative) 08/27/24 12:35 All radiology interpretation(s) finalized by discharge Discharge Plan Discharge Patient Disposition: Transfer to ED Clinical Impression: Intracranial mass, S/P cervical spinal fusion Condition: Stable Prescriptions: No Action amlodipine 5 mg tablet 5 mg PO DAILY ibuprofen 800 mg tablet 800 mg PO Q6H PRN (Reason: Pain) Hold Instructions: Resume on 08/28/24. cholecalciferol (vitamin D3) 50 mcg (2,000 unit) capsule 50 mcg PO DAILY (DME) Bone Growth Stimulator See Rx Instructions .Route .MEDSUPPLY Qty: 1 0RF Rx Instructions: As directed hydrocodone-acetaminophen 5-325 mg tablet 1 - 2 tab PO .Q4-6H Qty: 40 0RF Referrals: Gerardo Altamirano MD [Primary Care Provider] - Coding Level of Care Code ED Solid State Tester for Chg Fwd
[2024-08-27 11:27] VITALS: BP 162/86; RESP 16; O2SAT 99
--- NOTE | 2024-08-27 11:43 | CT_ITS ---
WS: [id number] CT HEAD NONCONTRAST CT HEAD WITH CONTRAST HISTORY: Symptoms of acute stroke, possible mass. TECHNIQUE: Contiguous axial imaging performed through the brain. Bone and soft tissue windows. Sagitt al and coronal reformats reviewed. All CT scans at [facility] use at least one of these dose optimization techniques: automated exposure control; mA and/or kV adjustment per patient size (includ es targeted exams where dose is matched to clinical indication); or iterative reconstruction. DLP: 1003.29 mGy Omnipaque 350 100 cc. COMPARISON: None available. Large amount of cerebral edema centered in the RIGHT brain. There is a large hyperdense mass in the R IGHT temporal region measuring 3.2 x 3.8 x 4.4 cm with significant mass effect upon the temporal lobe and sylvian fissure. Approximately 10 mm of midline shift to the LEFT with extensive edema. There is trapping of the third ventricle and aqueduct with subfalcine herniation. There is also uncal herniat ion with effacement of the suprasellar cistern. Effacement of the ambient cisterns with distortion of the midbrain. The fourth ventricle is normal size. There is no inferior displacement of the cerebell ar tonsils. Paranasal sinuses: As visualized are clear. Mastoid air cells: Well pneumatized. Calvarium and scalp: Skull is intact with no soft tissue edema or swelling. CT head postcontrast. Large mass described on the noncontrast head CT in the RIGHT temporal lobe is intensely and diffusely enhancing. RIGHT middle cerebral artery is being displaced posteriorly and medially. Mass abuts the RIGHT temporal bone and there is a short segment of calcific rim suggesting this may be extra-axial a nd meningioma. No additional areas of abnormal enhancement. Postcontrast measurements of the mass are 3.5 x 3[address]/CT head thrombolytic [id number] IMPRESSION: 1. Large mass centered in the RIGHT temporal region with a large amount of randall rounding cerebral edema resulting in midline shift and herniation. Mass intense ly enhancing and measures 3.5 x 3.9 x 4.9 cm. Suspect this may be a meningioma and atypical due to its size. Differential would include glioma and brain mets such as melanoma. 2. Subfalcine herniation by 10 mm with entrapment of the third ventricle and d ilatation of the LEFT lateral ventricle. 3. Additional partial entrapment of the suprasellar and ambient cisterns. 4. Fourth ventricle is patent. No inferior herniation of the brain. Notified Francisco Fischer DO at 08/27/2024 12:32 PM.
--- NOTE | 2024-08-27 11:43 | ECG_ITS ---
[facility] Test Date: 2024-08-27 Pat Name: Ivy Latif Department: Room: Gender: Female In Home Aide: : 1950 Requested By: Francisco Staley Order Number: [id number] Cano MD: Lai Reddy M.D. Measurements Intervals Jay Rate: 91 P: 59 MO: 170 QRS: -38 QRSD: 92 T: 68 QT: 353 QTc: 436 Interpretive Statements SINUS RHYTHM LEFT AXIS DEVIATION [QRS AXIS < -30] PATTERN CONSISTENT WITH PULMONARY DISEASE MODERATE ST DEPRESSION [0.05+ mV ST DEPRESSION] Compared to ECG 08/13/2024 09:18:24 ST (T wave) deviation now present Electronically Signed On 08-28-2024 23:08:26 SLACK LINE YARDER by Lai Reddy M.D. [email or web address]
[2024-08-27] MEDS: iohexol 350 mg/mL 500 mL Btl (per mL) IV ×2 (12:01→13:02)
[2024-08-27 12:05] LABS: Basophils # 0.1 10^3/uL (0.0-0.1); Basophils % 0.4 %; Eosinophils % 0.3 %; Hematocrit 36.8 % (36-47); Lymphocytes # 1.2 10^3/uL (0.8-4.8); Lymphocytes % 9.3 %; Mean Corpuscular HGB Conc 34.2 g/dL (30-55); Mean Corpuscular Volume 87.6 fl (85-98); Mean Platelet Volume 9.1 fL (7.4-10.4); Monocytes # 1.1 10^3/uL (0.2-0.9); Monocytes % 8.8 %; Neutrophils % 80.8 %; Nucleated Red Blood Cells % 0 %; Platelet Count 287 10^3/cmm (157-399); Red Cell Distribution Width 11.7 % (12.1-15.1); White Blood Count 12.87 10^3/uL (3.29-11.43)
[2024-08-27 12:17] LABS: INR 1.03 (0.8-1.2)
[2024-08-27 12:18] LABS: Partial Thromboplastin Time 24.8 SECONDS (23.9-36.7)
[2024-08-27 12:18] LABS: Glucose Point of Care 105 mg/dL (70-110)
[2024-08-27 12:23] LABS: Alanine Aminotransferase 13 U/L (0-33); Alkaline Phosphatase 64 U/L (35-105); Anion Gap 15.3 (5-19); Aspartate Amino Transferase 36 U/L (0-32); Blood Urea Nitrogen 13 mg/dL (8-23); Carbon Dioxide 27 mmol/L (22-29); Chloride 97 mmol/L (98-107); Creatinine Clr Calc Pharmacy 59.7788; Glucose 109 mg/dL (65-115); Osmolality Calculated 283 mOsm/kg (285-295); Potassium 3.3 mmol/L (3.5-5.1); Sodium 136 mmol/L (136-145); Total Bilirubin 0.5 mg/dL (0.15-1.2)
[2024-08-27] MEDS: dexamethasone 10 mg/mL INJ IM (12:39)
--- NOTE | 2024-08-27 12:41 | CT_ITS ---
WS: [id number] CT NECK WITH CONTRAST HISTORY: stridor post op ACDF TECHNIQUE: Contiguous 2 mm axial images are performed through the neck with intravenous contrast. Sag ittal and coronal reformats are also submitted. All CT scans at [facility] [place] use at least one o f these dose optimization techniques: automated exposure control; mA and/or kV adjustment per patient size (includes targeted exams where dose is matched to clinical indication); or iterative reconstruc tion. CONTRAST: CONTRAST: Omnipaque 350; 50 mL IV. DLP: 271.24 mGy.cm COMPARISON: None available. No compromise of the airway. Epiglottis is not enlarged. Thickened. Postoperative changes from the re cent anterior cervical fusion are evident. There is edema in the soft tissues and several foci of air . Air extends along the RIGHT neck with a few foci extending into the upper mediastinum and crossing the midline at the level of the clavicular heads. There is an additional small fluid collection preve rtebral space extending over a length of 2.2 cm and transversely by 2.2 cm. There is slight mass effe ct upon the posterior cervical esophagus. Hounsfield units are slightly elevated. This may be a small postoperative seroma or hematoma. Similar collection extends more superiorly along the RIGHT neck at C6-7. Moderate calcification of the aortic arch. Patient has a known intracranial RIGHT temporal mass with edema and mass effect. CT/CT neck w con* [id number] IMPRESSION: 1. Recent postoperative changes of an anterior cervical fusion with postoperat kimberly air identified. 2. There is a small fluid collection in the prevertebral space at the level of C7-1 and along the RIGHT lateral vertebral body at C6-7. Small hematoma versus seroma. There is slight mass effect upon the posterior cervical esophagus. 3. No significant narrowing or compromise of the airway. Notified Francisco Fischer DO at 08/27/2024 1:22 PM.
[2024-08-27 12:57] LABS: Bilirubin Urine Negative (Negative); Blood Urine Negative (Negative); Glucose Urine UA Negative (Normal); Ketones Urine Trace (Negative); Leukocyte Esterase Urine Negative (Negative); Nitrate Urine Negative (Negative); Protein Urine Negative (Negative); Specific Gravity, Urine 1.027 (1.005-1.030); Urine Appearance Clear (CLEAR); Urine Color Yellow (Yellow); Urobilinogen Urine 0.2 mg/dL (Negative); pH Urine 7.5 (5-7)
[2024-08-27 12:59] LABS: Add Urine Microscopic? YES; Bacteria Urine None Seen /hpf; Hyaline Casts Urine 0-4 /lpf; RBC Urine 0-2 /hpf (0-2); Squamous Epithelial Cell Urine 0-5 /hpf (0-5); WBC Urine 0-5 /hpf (0-5)
[2024-08-27 13:20] LABS: Amphetamines Screen Urine Negative (Negative); Barbiturates Screen Urine Negative (Negative); Benzodiazepines Screen Urine Negative (Negative); Cocaine Screen Urine Negative (Negative); Opiate Screen Urine Positive (Negative); PCP Screen Urine Negative (Negative); THC Screen Urine Negative (Negative)
[2024-08-27] MEDS: labetalol 5 mg/mL SDV 20mL 10 MG IVP (13:24)
[2024-08-27 13:29] VITALS: BP 186/75; PULSE 79; O2SAT 97
[2024-08-27] MEDS: amlodipine 5 mg Tablet PO (13:43)
[2024-08-27 13:57] VITALS: BP 162/59; PULSE 81; O2SAT 98
--- NOTE | 2024-08-27 13:59 | PC.NURSE ---
PATIENTS BP WAS 162/59 WHEN TAKEN BEFORE EMS TRANSFER. PROVIDER NOTIFIED OF BP, VERBAL ORDER TO HOLD HYDRALAZINE.
== END 2024-08-27 13:59 ==
PROVIDERS: Emergency Provider Family Medicine; PCP Family Medicine
DX: R90.0 Intracranial space-occupying lesion found on diagnostic imaging of central nervous system (principal); M43.22 Fusion of spine, cervical region
CPT/HCPCS: 36416; 70450; 70460; 70491; 72125; 73030; 80053; 80306; 81001; 82962; 85025; 85610; 85730; 93005; 96372; 96374; 99285; J1100; J3490

== ENCOUNTER → 2024-09-09 14:47 | Outpatient (BNVA) | payer MEDICARE, SELFPAY | PROVIDERS: PCP Family Medicine; Visit Provider Orthopaedic Surgery | DX: M47.12 Other spondylosis with myelopathy, cervical region (principal) | CPT/HCPCS: 99024 ==

== ENCOUNTER → 2024-10-07 15:09 | Outpatient (BNVA) | payer MEDICARE, SELFPAY | PROVIDERS: PCP Family Medicine; Visit Provider Orthopaedic Surgery | DX: M47.12 Other spondylosis with myelopathy, cervical region (principal) | CPT/HCPCS: 72040; 99024 ==

== ENCOUNTER 2024-10-11 07:45 | Outpatient (CLI) | payer MEDICARE, SELFPAY ==
--- NOTE | 2024-10-11 08:00 | CT_ITS ---
WS: [id number] CT CERVICAL SPINE HISTORY: neck pain TECHNIQUE: Contiguous 2.0 mm axial imaging performed through the entire cervical spine. Sagittal and coronal reformats also performed. All CT scans at [facility] use at least one of these dose optimization techniques: automated exposure control; mA and/or kV adjustment per patient size (includes targeted exams where dose is matched to clinical indication); or iterative reconstruction. DLP: 140.57 mGy.cm COMPARISON: Radiograph 10/07/2024, CT 08/27/2024 Status post anterior cervical fusion from C4-C7. Plate and screw fixation reidentified. Anterior cervical plate is displaced from the anterior margin of the vertebral bodies by large osteophytes. Interbody spacers at C4-5, C5-6 and C6-7 appear very similar to the prior CT. There is increasing distance between the anterior cervical plate and the vertebral bodies with screw retraction. This is most evident at C4 and C5. Cervical plate to vertebral body distance is 7.7 mm at C5 as compared to 3.4 mm on 08/27/2024. Facet joints are narrowed. Slightly greater on the LEFT. No acute fracture. Lateral masses of C1 and C2 are aligned. C2-C3: Marked bilateral facet arthritis. Osteophytic ridging resulting in bilateral foraminal stenosis. C3-C4: Marked bilateral facet arthropathy and hypertrophy. Severe bilateral foraminal stenosis. Small central disc protrusion. C4-C5: Severe LEFT and moderate RIGHT facet arthritis. Severe bilateral foraminal stenosis and mild central stenosis. Greater stenosis on the LEFT. C5-C6: Marked osteophytic ridging, severe central and bilateral foraminal stenosis. C6-C7: Osteophytic ridging. Moderate to severe central and bilateral foraminal stenosis. C7-T1: Facet arthritis. No stenosis. Lung apices are clear. Small cervical chain lymph nodes. CT/CT cervical spin wo con* [id number] IMPRESSION: 1. Status post anterior cervical fusion from C4-C7 with interbody spacers at C 4-5, C5-6 and C6-7. 2. Displacement of the anterior cervical plate from the vertebral bodies and s crew retraction from the vertebral bodies. Most significant at C5. Screw has re tracted from 3.4 mm to 7.7 mm. 3. Multilevel advanced foraminal and central stenosis as described above. Kris ed facet joint arthritis.
== END 2024-10-11 07:46 | disposition home or self-care (01) ==
LOC: RAD 07:46
PROVIDERS: PCP Family Medicine; Visit Provider Orthopaedic Surgery
DX: M47.12 Other spondylosis with myelopathy, cervical region (principal); Z98.1 Arthrodesis status; M96.89 Other intraoperative and postprocedural complications and disorders of the musculoskeletal system; M25.78 Osteophyte, vertebrae; M47.892 Other spondylosis, cervical region; M48.02 Spinal stenosis, cervical region; M50.21 Other cervical disc displacement, high cervical region; M47.893 Other spondylosis, cervicothoracic region; R59.0 Localized enlarged lymph nodes; R93.7 Abnormal findings on diagnostic imaging of other parts of musculoskeletal system
CPT/HCPCS: 72125

== ENCOUNTER → 2024-10-19 08:44 | Outpatient (BNVA) | payer MEDICARE, SELFPAY | PROVIDERS: PCP Family Medicine; Visit Provider Orthopaedic Surgery | DX: Z98.1 Arthrodesis status (principal) | CPT/HCPCS: 99024 ==

== ENCOUNTER 2024-10-30 17:39 | Emergency (ER) | payer MEDICARE, SELFPAY ==
[2024-10-30 17:48] VITALS: BP 101/66; PULSE 112; RESP 18; TEMP 36.7; O2SAT 94; BMI 29.8
--- NOTE | 2024-10-30 18:43 | USR_ITS ---
PROCEDURE INFORMATION: Exam: US Duplex Artery or Vein of the Abdominal and/or Reproductive Organs, Limited Liver Exam date and time: 10/30/2024 6:53 PM Age: 74 years old Clinical indication: Abdominal pain; Additional info: Ruq pain TECHNIQUE: Imaging protocol: Real-time duplex ultrasound scan of the arterial or venous flow with color Doppler flow and spectral waveform analysis with image documentation. Limited Duplex exam focused on the liver and portal venous system. Duplex exam was performed to evaluate for vascular conditions. COMPARISON: No relevant prior studies available. FINDINGS: Portal venous: Patent. Normal waveforms. Normal hepatopetal (towards the liver) flow. Hepatic artery: Not assessed. PROCEDURE INFORMATION: Exam: US Abdomen, Limited; Right Upper Quadrant Exam date and time: 10/30/2024 6:53 PM Age: 74 years old Clinical indication: Abdominal pain; Additional info: Ruq pain TECHNIQUE: Imaging protocol: Real time ultrasound of the abdomen with image documentation. Limited exam focused on the right upper quadrant. COMPARISON: No relevant prior studies available. FINDINGS: Liver: The liver is normal. No hepatic masses are identified. Gallbladder: Stones and sludge are identified within the gallbladder. The gallbladder wall is thickened and edematous. Positive sonographic Valdes's sign. Biliary ducts: Common bile duct is not well visualized. There is no definitive intra or extrahepatic ductal dilatation. The common bile duct measures a proximally 5 mm.. Pancreas: The visualized portions of the pancreas are within normal limits. The tail is obscured by bowel gas. Right kidney: The right kidney is normal. There is no evidence of renal calcification or hydronephrosis. The right kidney measures 8.4 cm in length. Aorta: The visualized aorta appears within normal limits. Inferior vena cava: The visualized inferior vena cava is within normal limits. Portal venous: The portal vein is patent. US/US gall bladder [id number] IMPRESSION: Unremarkable duplex of the portal vein. IMPRESSION: Cholelithiasis with thickened and edematous gallbladder wall and positive sonographic Valdes's sign compatible with acute cholecystitis in the appropriate clinical setting.
[2024-10-30] MEDS: lactated ringers 1,000 ML 999 ML IV (19:24)
[2024-10-30 19:27] LABS: Basophils # 0.1 10^3/uL (0.0-0.1); Basophils % 0.4 %; Eosinophils # 0.1 10^3/uL (0.0-0.8); Hematocrit 32.5 % (36-47); Lymphocytes # 0.9 10^3/uL (0.8-4.8); Lymphocytes % 7.1 %; Mean Corpuscular HGB Conc 32.6 g/dL (30-55); Mean Corpuscular Hemoglobin 28.5 pg (27-33); Mean Corpuscular Volume 87.4 fl (85-98); Mean Platelet Volume 8.8 fL (7.4-10.4); Monocytes # 1.5 10^3/uL (0.2-0.9); Monocytes % 12.2 %; Neutrophils # 9.38 10^3/uL (1.8-7.7); Neutrophils % 78.3 %; Nucleated Red Blood Cells % 0 %; Platelet Count 441 10^3/cmm (157-399); Red Blood Count 3.72 10^6/uL (3.85-5.65); Red Cell Distribution Width 11.5 % (12.1-15.1); White Blood Count 11.98 10^3/uL (3.29-11.43)
--- NOTE | 2024-10-30 19:36 | W.ED.ABDPA2 ---
HPI - Abdominal Pain General: Chief Complaint: Abdominal Pain Stated Complaint: high fever Time Seen by Provider: 10/30/24 18:42 History of Present Illness: 74-year-old female who has been sick for about 6 days with right-sided abdominal pain. She was throwing up on Friday, and was seen in an urgent care clinic. There was some concern about her gallbladder at that point. She has since stopped vomiting. She was seen at her PCP clinic on Friday, with continued concern about her gallbladder. Outpatient ultrasound was scheduled. I will evidently her white blood cell count was elevated at that point. Today, she popped a fever of 103 at home. She still experiencing pain. No vomiting as above. No jaundice. The fever worried her family, show she comes to the emergency department. Related Data Home Medications ?Medication ?Instructions ?Recorded ?Confirmed amlodipine 5 mg tablet 5 mg PO DAILY 07/15/24 09/09/24 cholecalciferol (vitamin D3) 50 50 mcg PO DAILY 08/13/24 09/09/24 mcg (2,000 unit) capsule ibuprofen 800 mg tablet 800 mg PO Q6H PRN Pain 08/13/24 09/09/24 Held on 08/26/24. Instructions: Resume on 08/28/24. Previous Rx's ?Medication ?Instructions ?Recorded Bone Growth Stimulator #1 ea 08/19/24 Allergies Allergy/AdvReac Type Severity Reaction Status Date / Time adhesive tape Allergy ADR-Itching Verified 10/07/24 15:30 [facility] PFSH: Social History Smoking and tobacco/nicotine status: unknown if used tobacco/nicotine Physical Exam Const: COMMON NORMALS: no acute distress GENERAL APPEARANCE: cooperative; not frail appearing HENMT: COMMON NORMALS: normocephalic, atraumatic and Normal external nose present HEAD & SCALP: normocephalic and atraumatic FACE & SINUS: normal facial exam and face symmetric NOSE: Normal external nose present Eye: COMMON NORMALS: Equal, round and reactive pupils present and EOMs intact bilaterally PUPIL: Yes Equal, round and reactive pupils present Neck/C-Spine: GENERAL: Yes trachea midline Chest: CHEST: Yes Symmetrical chest wall rise Resp: COMMON NORMALS: normal respiratory effort, No retractions, No use of accessory muscles and clear to auscultation bilaterally AUSCULTATION: clear to auscultation bilaterally Cardio: COMMON NORMALS: regular rate and regular rhythm RATE: regular rate RHYTHM: regular rhythm GI: COMMON NORMALS: Normal to inspection, nondistended, normoactive bowel sounds present and Soft to palpation PALPATION: Yes Soft to palpation and Yes Tenderness to palpation present (GI) Details: RUQ Extremity: COMMON NORMALS: no pedal edema Neuro: SENAIT COMA SCALE: document GCS findings [place] coma scale eye opening: Spontaneous [place] coma scale verbal response: Orientated [place] coma scale motor response: Obey commands [place] coma scale total score: 15 SENSORY EXAM: Yes extremities (intact) Psych: COMMON NORMALS: speech normal SPEECH: Yes normal speech Skin: COMMON NORMALS: no rashes or lesions noted GENERAL SKIN EXAM: no rashes or lesions noted Course Vital Signs: Vital signs: Vital Signs Temperature 98.1 F 10/30/24 17:48 Pulse Rate 112 H 10/30/24 17:48 Respiratory Rate 18 10/30/24 17:48 Blood Pressure 101/66 10/30/24 17:48 Pulse Oximetry 94 10/30/24 17:48 Oxygen Delivery Me thod Room Air 10/30/24 17:48 MDM - Abdominal Pain Medical Decision Making Patient's vitals are blood pressure 101/66 with heart rate of 112. Other vitals are normal. White blood cell count is 12. Hemoglobin is 10.6. Gallbladder ultrasound shows thickened wall, gallbladder hydrops with stones, and. Cholecystic fluid. She has a positive ultrasound Valdes's. No common bile duct dilatation. We have no surgery available at this facility currently. Spoke with Patrick Blackman in [facility]. Ultrasound images were sent and reviewed. Has been accepted by surgery, Dr. Starks. Will go in EMS transport. Lab Data 10/30/24 19:21 10/30/24 19:21 Labs/Radiology: Radiology Impressions Gallbladder Ultrasound 10/30/24 18:43 IMPRESSION: Unremarkable duplex of the portal vein. IMPRESSION: Cholelithiasis with thickened and edematous gallbladder wall and positive sonographic Valdes's sign compatible with acute cholecystitis in the appropriate clinical setting. Laboratory Results WBC 11.98 10^3/uL (3.29-11.43) H 10/30/24 19:21 RBC 3.72 10^6/uL (3.85-5.65) L 10/30/24 19:21 Hgb 10.60 g/dL (11.27-16.99) L 10/30/24 19:21 Hct 32.5 % (36-47) L 10/30/24 19:21 MCV 87.4 fl (85-98) 10/30/24 19:21 MCH 28.5 pg (27-33) 10/30/24 19:21 MCHC 32.6 g/dL (30-55) 10/30/24 19:21 RDW 11.5 % (12.1-15.1) L 10/30/24 19:21 Plt Count 441 10^3/cmm (157-399) H 10/30/24 19:21 MPV 8.8 fL (7.4-10.4) 10/30/24 19:21 Neut % (Auto) 78.3 % 10/30/24 19:21 Lymph % (Auto) 7.1 % 10/30/24 19:21 [place] % (Auto) 12.2 % 10/30/24 19:21 Eos % (Auto) 1.0 % 10/30/24 19:21 Baso % (Auto) 0.4 % 10/30/24 19:21 Neut # (Auto) 9.38 10^3/uL (1.8-7.7) H 10/30/24 19:21 Lymph # (Auto) 0.9 10^3/uL (0.8-4.8) 10/30/24 19:21 [place] # (Auto) 1.5 10^3/uL (0.2-0.9) H 10/30/24 19:21 Eos # (Auto) 0.1 10^3/uL (0.0-0.8) 10/30/24 19:21 Baso # (Auto) 0.1 10^3/uL (0.0-0.1) 10/30/24 19:21 Nucleated RBC % (auto) 0 % 10/30/24 19:21 Nucleated RBCs # 0.0 /100WBC 10/30/24 19:21 Sodium 129 mmol/L (136-145) L 10/30/24 19:21 Potassium 3.6 mmol/L (3.5-5.1) 10/30/24 19:21 Chloride 92 mmol/L (98-107) L 10/30/24 19:21 Carbon Dioxide 26 mmol/L (22-29) 10/30/24 19:21 Anion Gap 14.6 (5-19) 10/30/24 19:21 BUN 9 mg/dL (8-23) 10/30/24 19:21 Creatinine 0.8 mg/dL (0.5-0.9) 10/30/24 19:21 GFR Calculation Not Reportable 10/30/24 19:21 Glucose 110 mg/dL (65-115) 10/30/24 19:21 Calculated Osmolality 267 mOsm/kg (285-295) L 10/30/24 19:21 Lactic Acid 0.9 mmol/L (0.5-2.2) 10/30/24 19:21 Calcium 8.5 mg/dL (8.5-10.5) 10/30/24 19:21 Total Bilirubin 0.4 mg/dL (0.15-1.2) 10/30/24 19:21 AST 85 U/L (0-32) H 10/30/24 19:21 ALT 64 U/L (0-33) H 10/30/24 19:21 Alkaline Phosphatase 170 U/L (35-105) H 10/30/24 19:21 C-Reactive Protein 211.6 mg/L (0.0-4.9) H 10/30/24 19:21 Total Protein 6.7 g/dL (6.6-8.7) 10/30/24 19:21 Albumin 3.1 g/dL (3.5-5.2) L 10/30/24 19:21 Globulin 3.6 g/dL (1.3-4.6) 10/30/24 19:21 Lipase 21 U/L (13-60) 10/30/24 19:21 Urine Color Yellow (Yellow) 10/30/24 19:26 Urine Appearance Clear (CLEAR) 10/30/24 19:26 Urine pH 5 (5-7) 10/30/24 19:26 Ur Specific [place] 1.010 (1.005-1.030) 10/30/24 19:26 Urine Protein 1+ (Negative) H 10/30/24 19:26 Urine Glucose (UA) Norm (Normal) 10/30/24 19:26 Urine Ketones Negative (Negative) 10/30/24 19:26 Urine Blood 2+ (Negative) H 10/30/24 19:26 Urine Nitrate Negative (Negative) 10/30/24 19:26 Urine Bilirubin 1+ (Negative) H 10/30/24 19:26 Urine Urobilinogen 1 mg/dL (Negative) H 10/30/24 19:26 Ur Leukocyte Esterase Trace (Negative) H 10/30/24 19:26 Urine RBC 0-4 /hpf (0-2) H 10/30/24 19:26 Urine WBC 5-10 /hpf (0-5) H 10/30/24 19:26 Ur Squamous Epith Cells 0-4 /hpf (0-5) H 10/30/24 19:26 Amorphous Sediment Not Reportable 10/30/24 19:26 Urine Bacteria Trace /hpf (NONE) 10/30/24 19:26 Urine Mucus 1+ /hpf 10/30/24 19:26 All radiology interpretation(s) finalized by discharge Discharge Plan Discharge Patient Disposition: Xfer Short-Term Hosp Clinical Impression: Acute calculous cholecystitis Condition: Fair Prescriptions: No Action amlodipine 5 mg tablet 5 mg PO DAILY ibuprofen 800 mg tablet 800 mg PO Q6H PRN (Reason: Pain) cholecalciferol (vitamin D3) 50 mcg (2,000 unit) capsule 50 mcg PO DAILY (DME) Bone Growth Stimulator See Rx Instructions .Route .MEDSUPPLY Qty: 1 0RF Rx Instructions: As directed Referrals: Gerardo Altamirano MD [Primary Care Provider] - Print Language: Upper Sorbian Coding Level of Care Code ED Hook And Eye Attacher for Chg Simone
[2024-10-30 19:47] LABS: Alanine Aminotransferase 64 U/L (0-33); Albumin Level 3.1 g/dL (3.5-5.2); Alkaline Phosphatase 170 U/L (35-105); Anion Gap 14.6 (5-19); Aspartate Amino Transferase 85 U/L (0-32); Blood Urea Nitrogen 9 mg/dL (8-23); C Reactive Protein 211.6 mg/L (0.0-4.9); Calcium 8.5 mg/dL (8.5-10.5); Carbon Dioxide 26 mmol/L (22-29); Chloride 92 mmol/L (98-107); Globulin 3.6 g/dL (1.3-4.6); Glucose 110 mg/dL (65-115); Lipase 21 U/L (13-60); Osmolality Calculated 267 mOsm/kg (285-295); Potassium 3.6 mmol/L (3.5-5.1); Sodium 129 mmol/L (136-145); Total Bilirubin 0.4 mg/dL (0.15-1.2); Total Protein 6.7 g/dL (6.6-8.7)
[2024-10-30 19:48] LABS: Lactic Sepsis W/Reflex 0.9 mmol/L (0.5-2.2)
[2024-10-30] MEDS: piperacillin-tazobactam 3.375 GM in sodium chloride 0.9% (plus) 50 ML IV (20:28)
[2024-10-30 20:30] LABS: Add Urine Culture? No; Add Urine Microscopic? YES; Bacteria Urine TRACE /hpf; Bilirubin Urine 1+ (Negative); Blood Urine 2+ (Negative); Glucose Urine UA Norm (Normal); Ketones Urine Negative (Negative); Leukocyte Esterase Urine Trace (Negative); Mucus Urine 1+ /hpf; Nitrate Urine Negative (Negative); Protein Urine 1+ (Negative); RBC Urine 0-4 /hpf (0-2); Squamous Epithelial Cell Urine 0-4 /hpf (0-5); Urine Appearance Clear (CLEAR); Urine Color Yellow (Yellow); Urobilinogen Urine 1 mg/dL (Negative); pH Urine 5 (5-7)
[2024-10-30 22:45] VITALS: BP 150/74; PULSE 84; RESP 20; O2SAT 96
== END 2024-10-30 22:47 | disposition short-term general hospital (02) ==
PROVIDERS: Emergency Provider Emergency Medicine; PCP Family Medicine
DX: K80.00 Calculus of gallbladder with acute cholecystitis without obstruction (principal)
CPT/HCPCS: 36415; 76705; 80053; 81001; 83605; 83690; 85025; 86140; 96374; 99285; J2543; J7120

== ENCOUNTER → 2024-11-18 08:55 | Outpatient (BNVA) | payer MEDICARE, SELFPAY | PROVIDERS: PCP Family Medicine; Visit Provider Orthopaedic Surgery | DX: Z98.1 Arthrodesis status (principal); M47.12 Other spondylosis with myelopathy, cervical region | CPT/HCPCS: 72040; 99024 ==

== ENCOUNTER → 2025-03-08 08:25 | Outpatient (BNVA) | payer MEDICARE, SELFPAY | PROVIDERS: PCP Family Medicine; Visit Provider Orthopaedic Surgery | DX: Z98.1 Arthrodesis status (principal) | CPT/HCPCS: 72040; 99213 ==

== ENCOUNTER → 2025-06-07 07:48 | Outpatient (BNVA) | payer MEDICARE, SELFPAY | PROVIDERS: PCP Family Medicine; Visit Provider Orthopaedic Surgery | DX: Z47.89 Encounter for other orthopedic aftercare (principal); Z98.1 Arthrodesis status | CPT/HCPCS: 72040; 99213 ==